=== PATIENT | male | born 1985 | race Caucasian/White ===

== ENCOUNTER 2017-09-08 00:39 | Emergency (ER) | payer BC ==
[2017-09-08 00:58] VITALS: TEMP 97.9
--- NOTE | 2017-09-08 01:05 | ED.PDOC ---
History of Present Illness - General Chief Complaint: General Stated Complaint: anxious, heart palpitations, chest pressure Time Seen by Provider: 09/08/17 00:58 Source: patient Exam Limitations: no limitations - History of Present Illness Initial Comments: Ang Go 31 y/o male stated felt heart was racing and pounding with chest tightness tonight while resting .Has history of panic attacks and taking alprazolam;no history of heart disease.Got nervous decided to come to ER. Timing/Duration: 1-3 hours Severity: moderate Improving Factors: nothing Worsening Factors: nothing Associated Symptoms: other - see hpi Allergies/Adverse Reactions: Allergies NO KNOWN ALLERGY Allergy (Verified 12/22/15 12:33) Home Medications: Ambulatory Orders Esomeprazole Magnesium [Nexium] 40 mg PO DAILY 12/22/15 ALPRAZolam [Xanax] 0.5 mg PO 09/08/17 Choline Fenofibrate [Trilipix] 135 mg PO 09/08/17 Review of Systems - Review of Systems Constitutional: States: no symptoms reported EENTM: States: no symptoms reported Respiratory: States: no symptoms reported Cardiology: States: see HPI Gastrointestinal/Abdominal: States: no symptoms reported Genitourinary: States: no symptoms reported Musculoskeletal: States: no symptoms reported Skin: States: no symptoms reported Neurological: States: no symptoms reported All other Systems: Reviewed and Negative, No Change from Baseline Past Medical History (General) - Patient Medical History Hx Seizures: No Hx Stroke: No Hx Dementia: No Hx Asthma: No Hx of COPD: No Hx Cardiac Disorders: No Hx Congestive Heart Failure: No Hx Pacemaker: No Hx Hypertension: No Hx Thyroid Disease: No Hx Diabetes: No Hx Gastroesophageal Reflux: Yes Hx Renal Disease: No Hx Cancer: No Hx of HIV: No Hx Hepatitis C: No Hx MRSA: No Hx Other PMH: Yes - anxity/panic attacks Surgical History: no surgical history - Vaccination History Hx Tetanus, Diphtheria Vaccination: No Hx Influenza Vaccination: No - Social History Hx Tobacco Use: No Hx Alcohol Use: No Hx Depression: No Hx Physical Abuse: No Hx Emotional Abuse: No Family Medical History - Family History Mother Family History: Unknown Hx Family Hypertension: Yes - dad Physical Exam - Physical Exam General Appearance: Alert, Comfortable, No apparent distress Eye Exam: bilateral normal Ears, Nose, Throat: hearing grossly normal, normal ENT inspection Neck: non-tender, full range of motion, supple Respiratory: lungs clear, normal breath sounds Cardiovascular/Chest: normal peripheral pulses, regular rate, rhythm, no murmur Peripheral Pulses: radial,right: 2+, radial,left: 2+ Gastrointestinal/Abdominal: non tender, soft, no organomegaly Back Exam: no CVA tenderness, no vertebral tenderness Neurologic: alert, oriented x 3 Skin Exam: normal color, warm/dry Progress - Progress Progress: 09/08/17 01:11 Vital Signs - 8 hr 09/08/17 00:53 Temperature 97.9 F Pulse Rate [lt 82 arm] Respiratory 20 Rate Blood Pressure 152/90 [lt arm] O2 Sat by Pulse 96 Oximetry - Results/Orders Results/Orders: 09/08/17 01:15 EKG STAT Laboratory Results - last 24 hr 09/08/17 09/08/17 01:20 01:20 WBC 5.4 RBC 4.55 L Hgb 14.6 Hct 42.0 MCV 92.3 MCH 32.0 H MCHC 34.8 RDW 12.7 Plt Count 240 MPV 8.3 Absolute Neuts (auto) 2.60 Absolute Lymphs (auto) 2.00 Absolute Monos (auto) 0.70 Absolute Eos (auto) 0.10 Absolute Basos (auto) 0.00 Neutrophils % 48.0 Lymphocytes % 36.4 Monocytes % 12.4 H Eosinophils % 2.4 Basophils % 0.8 PT 11.1 INR 0.980 PTT (SP) 35.1 D-Dimer, Quantitative < 230 Sodium 138 Potassium 3.4 L Chloride 104 Carbon Dioxide 27 Anion Gap 10.4 L BUN 19 H Creatinine 1.41 H BUN/Creatinine Ratio 13.5 Random Glucose 120 H Serum Osmolality 279.1 Calcium 9.8 Magnesium 2.1 Total Bilirubin 0.8 Direct Bilirubin < 0.1 Indirect Bilirubin 0.7 AST 27 ALT 43 Alkaline Phosphatase 41 L Creatine Kinase 184 H CK-MB (CK-2) 1.4 CK-MB (CK-2) % Not Reportable Troponin I < 0.02 Serum Total Protein 7.8 Albumin 4.7 - EKG/XRAY/CT EKG: Sinus, no ST T wave changes Comments: Heart rate-80 Departure - Departure Clinical Impression: Heart palpitations, Chest tightness or pressure Time of Disposition: 03:56 Disposition: Discharge to Home or Self Care Condition: Fair Departure Forms: ED Discharge - Pt. Copy, Patient Portal Self Enrollment Instructions: DI for Palpitations, DI for Atypical Chest Pain Referrals: Preston Montoya MD [Primary Care Provider] - 1-2 Weeks Home Medications: Ambulatory Orders Esomeprazole Magnesium [Nexium] 40 mg PO DAILY 12/22/15 ALPRAZolam [Xanax] 0.5 mg PO 09/08/17 Choline Fenofibrate [Trilipix] 135 mg PO 09/08/17 Additional Instructions: Continue with home medications;follow up with primary Md 09/09/2017;Return to ER as needed
[2017-09-08 04:03] VITALS: BP 117/64; O2SAT 99
== END 2017-09-08 04:03 | disposition home or self-care (01) ==
LOC: ER 00:39
DX: R00.2 Palpitations (principal); R07.89 Other chest pain; F41.9 Anxiety disorder, unspecified; K21.9 Gastro-esophageal reflux disease without esophagitis; Z79.899 Other long term (current) drug therapy

== ENCOUNTER 2019-05-10 16:05 | Emergency (ER) | payer BC, OTHER ==
--- NOTE | 2019-05-10 17:32 | ED.PDOC ---
History of Present Illness - General Chief Complaint: Cardiovascular Problem Time Seen by Provider: 05/10/19 16:07 Source: patient Exam Limitations: no limitations - History of Present Illness Initial Comments: The patient is a 33-year-old male presenting to the emergency room secondary to sensation of palpitations. He has had this problem many times in the past and has been worked up with Dr. Almanzar in the past showing no significant arrhythmia. He was sitting still this evening when he felt some palpitations. No chest pain or shortness of breath. No CPR near syncope. Being that he would've a block away he decided that he would show up and let us monitor him for an hour while he was having symptoms to see if there was any arrhythmia to be picked up. He does not feel particularly anxious. No chest pain though he does have a history of some gastritis and reflux. Timing/Duration: 1/2 hour Severity: mild Improving Factors: nothing Worsening Factors: nothing Associated Symptoms: denies symptoms Allergies/Adverse Reactions: Allergies NO KNOWN ALLERGY Allergy (Verified 12/22/15 12:33) Home Medications: Ambulatory Orders Esomeprazole Magnesium [Nexium] 40 mg PO DAILY 12/22/15 ALPRAZolam [Xanax] 0.5 mg PO 09/08/17 Choline Fenofibrate [Trilipix] 135 mg PO 09/08/17 Review of Systems - Review of Systems Constitutional: States: no symptoms reported EENTM: States: no symptoms reported Respiratory: States: no symptoms reported Cardiology: States: palpitations Gastrointestinal/Abdominal: States: no symptoms reported Genitourinary: States: no symptoms reported Musculoskeletal: States: no symptoms reported Skin: States: no symptoms reported Neurological: States: no symptoms reported Endocrine: States: no symptoms reported All other Systems: No Change from Baseline Past Medical History (General) - Patient Medical History Hx Seizures: No Hx Stroke: No Hx Dementia: No Hx Asthma: No Hx of COPD: No Hx Cardiac Disorders: No Hx Congestive Heart Failure: No Hx Pacemaker: No Hx Hypertension: No Hx Thyroid Disease: No Hx Diabetes: No Hx Gastroesophageal Reflux: Yes Hx Renal Disease: No Hx Cancer: No Hx of HIV: No Hx Hepatitis C: No Hx MRSA: No Surgical History: no surgical history - Vaccination History Hx Tetanus, Diphtheria Vaccination: No Hx Influenza Vaccination: Yes - 2019 Hx Pneumococcal Vaccination: No - Social History Hx Tobacco Use: No Hx Alcohol Use: Yes - Social use Hx Depression: No Hx Physical Abuse: No Hx Emotional Abuse: No Family Medical History - Family History Mother Family History: Unknown Hx Family Hypertension: Yes - dad Physical Exam - Physical Exam General Appearance: Alert, Comfortable, No apparent distress Eye Exam: bilateral normal Ears, Nose, Throat: hearing grossly normal, normal pharynx Neck: full range of motion, supple Respiratory: lungs clear, normal breath sounds, no respiratory distress, no accessory muscle use Cardiovascular/Chest: normal peripheral pulses, regular rate, rhythm, no edema Peripheral Pulses: radial,right: 2+, radial,left: 2+, dorsalis pedis,right: 2+, dorsalis pedis,left: 2+ Gastrointestinal/Abdominal: non tender, soft Rectal Exam: deferred Extremity: normal range of motion, no pedal edema, normal capillary refill 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 The patient has been monitored for about an hour and a half here. No significant arrhythmia has been noted. Heart rate ranges between 60 bpm and 110 bpm. It is all a sinus rhythm. EKG is reassuring. The patient will be allowed to go home. He needs to follow-up with his primary care doctor who has been working with him already on this. ER warnings were given. nidhi [id number] - Results/Orders Results/Orders: EKG shows normal sinus rhythm at 95 bpm. Borderline right axis. Normal R-wave progression. No ST segment or T-wave changes indicative of ischemia. No obvious delta waves. Normal QT interval. Mild left atrial dilation. Departure - Departure Clinical Impression: Palpitations Disposition: Discharge to Home or Self Care Condition: Fair Departure Forms: ED Discharge - Pt. Copy, Patient Portal Self Enrollment Instructions: Palpitations Diet: regular diet Activity: increase activity as tolerated Referrals: Krishna Almanzar MD [Primary Care Provider] - 1-2 Weeks Home Medications: Ambulatory Orders Esomeprazole Magnesium [Nexium] 40 mg PO DAILY 12/22/15 ALPRAZolam [Xanax] 0.5 mg PO 09/08/17 Choline Fenofibrate [Trilipix] 135 mg PO 09/08/17 Additional Instructions: the patient is a 33-year-old male presenting to the emergency room secondary to a recurrence of his sensation of palpitations. The patient has been monitored for about an hour and a half here. No significant arrhythmia has been noted. Heart rate ranges between 60 bpm and 110 bpm. It is all a sinus rhythm. EKG is reassuring. The patient will be allowed to go home. He needs to follow-up with his primary care doctor who has been working with him already on this. ER warnings were given.
[2019-05-10 17:47] VITALS: BP 122/87; TEMP 98; O2SAT 98
== END 2019-05-10 17:40 | disposition home or self-care (01) ==
LOC: ER 16:05
DX: R00.2 Palpitations (principal); K21.9 Gastro-esophageal reflux disease without esophagitis; Z79.899 Other long term (current) drug therapy

== ENCOUNTER → 2019-08-27 | Outpatient (CLI) | payer OTHER ==
--- NOTE | 2019-08-27 22:21 | RAD ---
XR PARANASAL SINUSES 3 OR MORE VIEWS HISTORY: 33 years Male NASAL CONGESTION COMPARISON: CT head 09/09/2013. TECHNIQUE: 3 view radiograph of the paranasal sinuses. IMPRESSION: No acute displaced fracture. No dislocation. Probably mild mucosal thickening along the floor the maxillary sinuses. Frontal, ethmoid, and sphenoid sinuses appear well pneumatized. Mild relative hypertrophy of the left inferior nasal turbinate. No radiopaque foreign body. Electronically signed by: Cuco Gordon MD 08/27/2019 10:20 PM [facility]
== END ==
LOC: RAD 13:19
PROVIDERS: ATTEND Nurse Practitioner Family
DX: R09.81 Nasal congestion (principal); J34.9 Unspecified disorder of nose and nasal sinuses

== ENCOUNTER → 2020-01-04 | Outpatient (CLI) | payer OTHER | LOC: GMA MATASK 16:25 | PROVIDERS: ATTEND Family Medicine | DX: Z00.00 Encounter for general adult medical examination without abnormal findings (principal) ==

== ENCOUNTER → 2020-01-22 | Outpatient (CLI) | payer OTHER ==
--- NOTE | 2020-01-22 14:35 | CT ---
EXAM: Abdomen/Pelvis w/wo Contrast CLINICAL HISTORY: GASTRO ESOPHAGEAL REFLUX DISEASE WITHOUT ESOPHAGITIS COMPARISON STUDY: None TECHNICAL: Noncontrast, postcontrast and delayed excretion phase contrast images of the abdomen and pelvis. Delayed urogram excretion images were performed. Sagittal and coronal reconstructions were obtained. Oral contrast was not given. FINDINGS: The visible portion of the chest is negative. The heart is not enlarged. The liver, spleen, pancreas, adrenal glands, and kidneys enhance appropriately and demonstrate no acute abnormality. The gallbladder is intact and there is no evidence of biliary dilatation. There is no bowel obstruction or free air. There is no acute inflammatory process. The appendix is visible and normal. The aorta, IVC and retroperitoneum are negative. Structures within the pelvis are negative. The visible osseous structures are negative. IMPRESSION: Negative CT abdomen and pelvis with and without contrast. This exam was performed according to our departmental dose-optimization program, which includes automated exposure control, adjustment of the mA and/or kV according to patient size and/or use of iterative reconstruction technique. Electronically signed by: Jos Blankenship MD 01/22/2020 2:33 PM CDT
== END ==
LOC: CT 09:59
PROVIDERS: ATTEND Family Medicine
DX: K21.9 Gastro-esophageal reflux disease without esophagitis (principal)

== ENCOUNTER → 2020-01-25 | Outpatient (CLI) | payer OTHER ==
--- NOTE | 2020-01-25 16:32 | CT ---
EXAM DESCRIPTION: Chest w/wo Contrast CLINICAL HISTORY: 34 years, Male, GASTRO-ESOPHAGEAL REFLUX DISEASE WITHOUT ESOPHAGITIS COMPARISON: None TECHNIQUE: Thin-section noncontrast axial CT images are obtained according to our protocol. Reconstructed MPR images are created and reviewed as well. FINDINGS: Lungs: No consolidating pulmonary infiltrate or groundglass infiltrate. No worrisome pulmonary mass or nodule. Mediastinum: Lymph nodes are normal in size. Normal vascular contours on the precontrast images. Heart size is normal with no pericardial effusion. Postcontrast images show normal enhancement of intrathoracic vessels. Normal enhancement of cardiac chambers. Chest wall/axilla: No mass or adenopathy. Lower neck/supraclavicular: No mass or adenopathy. Normal thyroid gland. Upper abdomen: Question noncalcified gallstones. Correlate with sono findings. Tiny cyst in the upper right lobe of the liver. Upper abdominal viscera are otherwise unremarkable. IMPRESSION: No acute process is identified in the chest. This exam was performed according to our departmental dose-optimization program, which includes automated exposure control, adjustment of the mA and/or kV according to patient size and/or use of iterative reconstruction technique. Total DLP equals 1045.06 mGycm. Electronically signed by: Carlos Kearns MD 01/25/2020 4:30 PM CDT
== END ==
LOC: CT 13:27
PROVIDERS: ATTEND Family Medicine
DX: K21.9 Gastro-esophageal reflux disease without esophagitis (principal)

== ENCOUNTER → 2020-04-07 | Outpatient (CLI) | payer OTHER | LOC: GMA MATASK 17:01 | PROVIDERS: ATTEND Family Medicine | DX: R19.7 Diarrhea, unspecified (principal) ==

== ENCOUNTER → 2020-04-18 | Outpatient (CLI) | payer OTHER ==
--- NOTE | 2020-04-18 17:45 | US ---
US SCROTUM HISTORY: 34 years Male LEFT TESTICULAR PN COMPARISON: None. TECHNIQUE: Multiple longitudinal and realtime ultrasound images of the scrotum are obtained with limited doppler analysis of the testicles. FINDINGS: The right testicle measures 4.3 x 3.1 x 2.5 cm. The right testicle demonstrates normal homogeneous echogenicity. Limited Doppler evaluation demonstrates appropriate testicular arterial and venous flow. The right epididymis is normal in size and echogenicity. 3 mm right epididymal head cyst versus spermatocele incidentally noted. Small hydrocele present. The left testicle measures 4.1 x 2.9 x 2.3 cm. The left testicle demonstrates normal homogeneous echogenicity. Limited Doppler evaluation demonstrates appropriate testicular arterial and venous flow. The left epididymis is normal in size and echogenicity. Small hydrocele present. Scattered serpiginous vessels redemonstrated in the left scrotum which do not meet imaging criteria for varicocele (3 mm diameter). Additionally, isolated left varicocele can represent normal physiology. IMPRESSION: Small bilateral hydroceles. Otherwise unremarkable exam. Electronically signed by: Calin Beckett MD 04/18/2020 5:43 PM CDT [facility]
== END ==
LOC: US 16:39
PROVIDERS: ATTEND Family Medicine
DX: N43.3 Hydrocele, unspecified (principal); N50.812 Left testicular pain